=== PATIENT | female | born 1955 | race Caucasian/White ===

== ENCOUNTER → 2016-03-15 | Outpatient (CLI) | payer BC ==
[~2016-03-15] MED LIST: ESCI1TAB10 PO
[2016-03-15 11:24] LABS: INFLUENZA A PCR Neg for Influ A (NEG); INFLUENZA B PCR Neg for Influ B (NEG)
== END | disposition home or self-care (01) ==
LOC: C.LAB1850 08:35
PROVIDERS: ATTEND Family Medicine
DX: J98.8 Other specified respiratory disorders (principal)

== ENCOUNTER → 2016-03-27 | Outpatient (CLI) | payer BC | END | disposition home or self-care (01) | LOC: C.LAB1850 16:29 | PROVIDERS: ATTEND Nurse Practitioner Family | DX: R32 Unspecified urinary incontinence (principal); R31.29 Other microscopic hematuria ==

== ENCOUNTER → 2016-04-17 | Outpatient (CLI) | payer BC ==
[2016-04-17 14:28] LABS: BASO % 0.6 %; BASO ABS # 0.03 K/uL (0-0.2); COMPLETE YES; EOS % 4.7 %; HEMATOCRIT 39.6 % (37-47); IG% 0.2 %; LYMPH % 37.4 %; LYMPH ABS # 1.92 K/uL (1.2-3.4); MEAN CORPUSCULAR HEMOGLOBIN 30.1 pg (25-34); MEAN CORPUSCULAR HGB CONC 33.8 g/dl (32-36); MEAN PLATELET VOLUME 10.9 fL (7.4-10.4); MONO % 6.2 %; NEUT % 50.9 %; PLATELET COUNT 262 K/uL (130-400); RED BLOOD COUNT 4.45 M/uL (4.2-5.4); WHITE BLOOD COUNT 5.14 K/uL (4.8-10.8)
[2016-04-17 14:39] LABS: ALT/SGPT 29 U/L (12-78); BLOOD UREA NITROGEN 25 mg/dl (7-18); BUN/CREATININE RATIO 39.4 (10-20); CALCIUM 8.9 mg/dl (8.5-10.1); CARBON DIOXIDE 26 mmol/L (21-32); CHLORIDE 107 mmol/L (98-107); CHOLESTEROL 176 mg/dl (0-200); CREATININE 0.63 mg/dl (0.60-1.20); GLUCOSE 99 mg/dl (70-99); POTASSIUM 3.9 mmol/L (3.5-5.1); SODIUM 142 mmol/L (136-145); TRIGLYCERIDES 96 mg/dl (0-150); VERY LOW DENSITY LIPOPROT CALC 19 mg/dl
[2016-04-17 14:42] LABS: ALKALINE PHOSPHATASE 78 U/L (45-117); AST/SGOT 15 U/L (15-37); CHOLESTEROL/HDL RATIO 3.7; HDL CHOLESTEROL 47 mg/dl; LDL CHOLESTEROL CALCULATED 110 mg/dl
[2016-04-17 14:54] LABS: ESTIMATED AVERAGE GLUCOSE 114 mg/dl; HA1C FLAG Normal (Normal)
== END | disposition home or self-care (01) ==
LOC: C.LABBC 09:52
PROVIDERS: ATTEND Family Medicine
DX: Z11.59 Encounter for screening for other viral diseases (principal); M06.9 Rheumatoid arthritis, unspecified; E78.5 Hyperlipidemia, unspecified; R73.01 Impaired fasting glucose

== ENCOUNTER → 2016-05-31 | Outpatient (CLI) | payer BC ==
--- NOTE | 2016-05-31 10:40 | DIAGNOSTIC IMAGING REPORT ---
LEFT KNEE 3 VIEWS CLINICAL HISTORY: Rheumatoid arthritis. FINDINGS: AP, lateral, and sunrise views of the left knee are obtained. No prior studies are available for comparison at the time of dictation. The skeletal structures appear osteopenic. No fracture is seen. There is mild to moderate narrowing at the patellofemoral articulation. The medial and lateral compartments appear preserved. There are small marginal osteophytes and patellar enthesophytes. No bony erosion is identified. There is no significant joint effusion. The overlying soft tissues are within normal limits. IMPRESSION: Osteopenia and mild arthritic change as above. No acute bony abnormality is identified. Electronically signed by: Mario Huerta M.D. 05/31/2016 10:38 AM Dictated Date/Time: 05/31/2016 10:36 AM
--- NOTE | 2016-05-31 10:48 | DIAGNOSTIC IMAGING REPORT ---
LEFT HAND MIN 3 VIEWS ROUTINE CLINICAL HISTORY: Osteoarthritis, rheumatoid arthritis. COMPARISON: None. DISCUSSION: No fractures are visualized. There is mild periarticular osteopenia. There are no erosive or destructive changes. There is a small particular calcification at the level of the interphalangeal joint of the thumb. There are mild osteoarthritic type changes most pronounced the level the first carpometacarpal joint. IMPRESSION: 1. Mild osteopenia 2. No acute fractures 3. No evidence of erosive disease Electronically signed by: Emil Schneider M.D. 05/31/2016 10:45 AM Dictated Date/Time: 05/31/2016 10:44 AM
--- NOTE | 2016-05-31 10:49 | DIAGNOSTIC IMAGING REPORT ---
RIGHT KNEE 3 VIEWS CLINICAL HISTORY: Right knee pain. Osteoarthritis. Rheumatoid arthritis. COMPARISON: None. DISCUSSION: No fractures are visualized. There are minor osteoarthritic type changes. There is minor narrowing of the medial joint compartment. There is a tiny dorsal patellar spur. There is no erosive disease. IMPRESSION: 1. No acute fractures 2. Minor degenerative change 3. No evidence of erosive disease Electronically signed by: Emil Schneider M.D. 05/31/2016 10:46 AM Dictated Date/Time: 05/31/2016 10:46 AM
--- NOTE | 2016-05-31 10:52 | DIAGNOSTIC IMAGING REPORT ---
RIGHT HAND 3 VIEWS CLINICAL HISTORY: Rheumatoid arthritis. FINDINGS: 3 views of the right hand are compared to study dated 02/20/2012. The skeletal structures appear osteopenic. No fracture is seen. Jyry-[id number] osteoarthritic change is present at the first carpometacarpal joint with bony sclerosis and mild subluxation. Mild osteoarthritic change is also seen involving the interphalangeal joints, distal greater than proximal. This is greatest in the first and second digits. No erosive arthropathy is identified. The overlying soft tissues are within normal limits. IMPRESSION: Osteopenia and osteoarthritic change as above. No acute bony abnormality is seen. Electronically signed by: Mario Huerta M.D. 05/31/2016 10:49 AM Dictated Date/Time: 05/31/2016 10:47 AM
[2016-05-31 12:18] LABS: BASO % 0.2 %; BASO ABS # 0.01 K/uL (0-0.2); COMPLETE YES; EOS % 4.3 %; HEMATOCRIT 42.2 % (37-47); LYMPH % 41.6 %; LYMPH ABS # 2.05 K/uL (1.2-3.4); MEAN CELL VOLUME 90.6 fL (80-100); MEAN CORPUSCULAR HEMOGLOBIN 30.3 pg (25-34); MEAN CORPUSCULAR HGB CONC 33.4 g/dl (32-36); MEAN PLATELET VOLUME 10.6 fL (7.4-10.4); MONO % 9.5 %; NEUT % 44.4 %; PLATELET COUNT 284 K/uL (130-400); RED BLOOD COUNT 4.66 M/uL (4.2-5.4); WHITE BLOOD COUNT 4.93 K/uL (4.8-10.8)
[2016-05-31 12:29] LABS: CREATININE 0.67 mg/dl (0.60-1.20)
[2016-05-31 12:38] LABS: ALKALINE PHOSPHATASE 79 U/L (45-117); ALT/SGPT 30 U/L (12-78); AST/SGOT 14 U/L (15-37); TOTAL IRON BINDING CAPACITY 361 mcg/dl (250-450)
[2016-06-12 13:10] LABS: ANTI-CENTROMERE AB <1.0 NEG AI (<1.0 NEG); ANTI-SS-A <1.0 NEG AI (<1.0 NEG); ANTI-SS-B <1.0 NEG AI (<1.0 NEG); DNA ds CRITHIDIA NEGATIVE (NEGATIVE); Sm Antibody <1.0 NEG AI (<1.0 NEG)
[2016-06-12 13:41] LABS: ANA TITER 1:40 TITER (<1:40)
== END | disposition home or self-care (01) ==
LOC: C.RAD1850 10:07
PROVIDERS: ATTEND Internal Medicine Rheumatology
DX: M06.9 Rheumatoid arthritis, unspecified (principal); M15.9 Polyosteoarthritis, unspecified; Z79.1 Long term (current) use of non-steroidal anti-inflammatories (NSAID); Z79.899 Other long term (current) drug therapy

== ENCOUNTER → 2016-08-30 | Outpatient (CLI) | payer BC ==
[2016-08-30 12:17] LABS: BASO % 0.5 %; BASO ABS # 0.03 K/uL (0-0.2); COMPLETE YES; EOS % 5.1 %; IG% 0.2 %; LYMPH % 41.3 %; LYMPH ABS # 2.28 K/uL (1.2-3.4); MEAN CELL VOLUME 90.1 fL (80-100); MEAN CORPUSCULAR HEMOGLOBIN 30.3 pg (25-34); MEAN CORPUSCULAR HGB CONC 33.7 g/dl (32-36); MEAN PLATELET VOLUME 10.6 fL (7.4-10.4); MONO % 7.4 %; NEUT % 45.5 %; PLATELET COUNT 241 K/uL (130-400); RED BLOOD COUNT 4.55 M/uL (4.2-5.4); WHITE BLOOD COUNT 5.52 K/uL (4.8-10.8)
[2016-08-30 12:34] LABS: ALT/SGPT 28 U/L (12-78); AST/SGOT 13 U/L (15-37); CREATININE 0.66 mg/dl (0.60-1.20)
== END | disposition home or self-care (01) ==
LOC: C.LAB1850 09:50
PROVIDERS: ATTEND Internal Medicine Rheumatology
DX: M06.9 Rheumatoid arthritis, unspecified (principal); Z79.899 Other long term (current) drug therapy; Z79.1 Long term (current) use of non-steroidal anti-inflammatories (NSAID)

== ENCOUNTER → 2016-09-01 | Outpatient (CLI) | payer BC | END | disposition home or self-care (01) | LOC: C.LABBC 09:38 | PROVIDERS: ATTEND Nurse Practitioner Family | DX: R82.90 Unspecified abnormal findings in urine (principal); R30.0 Dysuria; R39.15 Urgency of urination ==

== ENCOUNTER → 2016-09-18 | Outpatient (CLI) | payer BC ==
--- NOTE | 2016-09-19 14:36 | MAMMOGRAPHY REPORT ---
BILATERAL DIGITAL SCREENING MAMMOGRAM TOMOSYNTHESIS WITH CAD: 09/18/2016 CLINICAL HISTORY: Routine screening examination. TECHNIQUE: Breast tomosynthesis in addition to standard 2D mammography was performed. Current study was also evaluated with a Computer Aided Detection (CAD) system. COMPARISON: Comparison is made to exams dated: 09/09/2015 mammogram, 09/09/2015 ultrasound, 09/07/2015 ninoska mogram, 09/01/2014 mammogram, 06/18/2013 mammogram, and 06/12/2012 mammogram - [facility] er. BREAST COMPOSITION: There are scattered areas of fibroglandular density in both breasts. FINDINGS: A 3.6 x 1.3 cm focal asymmetry in the right upper outer quadrant appears stable dating back to at least 05/28/2008, therefore likely benign. No suspicious mass, architectural distortion or cl uster of suspicious microcalcifications is seen. IMPRESSION: ACR BI-RADS CATEGORY 1: NEGATIVE There is no mammographic evidence of malignancy. A 1 year screening mammogram is recommended. The pa tient will receive written notification of the results. Approximately 10% of breast cancers are not detected with mammography. A negative mammographic report should not delay biopsy if a clinically suggestive mass is present. Rosenda Davis M.D. ay/:09/18/2016 16:02:35 Manager User Interface: Karen JAMES)(M), [facility] letter sent: Normal 1/2 BI-RADS Code: ACR BI-RADS Category 1: Negative
== END | disposition home or self-care (01) ==
LOC: C.MAMM 08:56
PROVIDERS: ATTEND Obstetrics & Gynecology
DX: Z12.31 Encounter for screening mammogram for malignant neoplasm of breast (principal)

== ENCOUNTER → 2016-10-17 | Outpatient (CLI) | payer BC ==
--- NOTE | 2016-10-17 11:35 | DIAGNOSTIC IMAGING REPORT ---
LEFT LOWER EXTREMITY WITHOUT CLINICAL HISTORY: 61 years-old Female presenting with chronic left foot pain. TECHNIQUE: Multidetector CT of the left lower extremity (left foot) was performed without the use of intravenous contrast. IV contrast: None. A dose lowering technique was used consistent with the principles of ALARA (as low as reasonably achievable). COMPARISON: Correlation made to plain radiographs of the left foot from 09/25/2016. CT DOSE (mGy.cm): The estimated cumulative dose is 220.92 mGy.cm. FINDINGS: Filter Press Pumper topogram: Internal fixation hardware noted. Two screw fixation through the first tarsometatarsal articulation and plate and screw fixation of the proximal phalanx of the first toe. Incomplete osseous fusion of the first tarsometatarsal joint. No hardware complication is apparent. Degenerative changes of the first metatarsophalangeal joint with joint space loss, subchondral cystic change, and osteophytosis as well as deformity of the head of the first metatarsal. Ankle mortise intact. No acute fracture or malalignment. No osseous erosions apparent. Soft tissues demonstrate mild infiltration and swelling along the dorsum of the midfoot superficial to the fixation hardware. Allowing for noncontrast technique, no focal fluid collection. Mild diffuse muscle atrophy. IMPRESSION: 1. Internal fixation of the first tarsometatarsal articulation with incomplete osseous fusion across the joint. Overlying soft tissue swelling along the dorsum of the midfoot; likely reactive, although cellulitis not excluded. Correlate clinically. 2. Significant degenerative change of the first metatarsophalangeal articulation. 3. Internal fixation of the proximal phalanx of the first toe. No hardware complication. Electronically signed by: Kalpesh Owen M.D. 10/17/2016 11:33 AM Dictated Date/Time: 10/17/2016 11:27 AM
== END | disposition home or self-care (01) ==
LOC: C.CTS 10:56
PROVIDERS: ATTEND Physician Assistant
DX: M79.672 Pain in left foot (principal); Z98.890 Other specified postprocedural states

== ENCOUNTER → 2017-03-20 | Outpatient (CLI) | payer OTHER ==
--- NOTE | 2017-03-20 10:33 | DIAGNOSTIC IMAGING REPORT ---
KUB HISTORY: Urinary tract infection. COMPARISON: Abdomen and pelvis CT 03/02/2014. FINDINGS: The bowel gas pattern is unremarkable. There are no dilated loops of small bowel to suggest an obstruction. No renal calculi. No ureteral calculi. No pneumoperitoneum or pneumatosis. IMPRESSION: No renal or ureteral stones. Electronically signed by: Bo Padilla M.D. 03/20/2017 10:31 AM Dictated Date/Time: 03/20/2017 10:31 AM
[2017-03-20 13:45] LABS: BASO % 0.7 %; BASO ABS # 0.03 K/uL (0-0.2); EOS % 6.9 %; HEMATOCRIT 41.5 % (37-47); HEMOGLOBIN 14.1 g/dL (12.0-16.0); IG# 0.01 K/uL (0.00-0.02); LYMPH % 35.9 %; LYMPH ABS # 1.57 K/uL (1.2-3.4); MEAN CELL VOLUME 88.3 fL (80-100); MEAN PLATELET VOLUME 10.7 fL (7.4-10.4); MONO % 9.8 %; MONO ABS # 0.43 K/uL (0.11-0.59); NEUT % 46.5 %; NEUT ABS # 2.03 K/uL (1.4-6.5); PLATELET COUNT 257 K/uL (130-400); RED CELL DISTRIBUTION WIDTH CV 12.7 % (11.5-14.5); RED CELL DISTRIBUTION WIDTH SD 40.7 fL (36.4-46.3); WHITE BLOOD COUNT 4.37 K/uL (4.8-10.8)
[2017-03-20 14:12] LABS: ALBUMIN 3.5 gm/dl (3.4-5.0); ALT/SGPT 26 U/L (12-78); AST/SGOT 12 U/L (15-37); TOTAL PROTEIN 7.4 gm/dl (6.4-8.2)
[2017-03-20 14:13] LABS: ALKALINE PHOSPHATASE 81 U/L (45-117)
== END | disposition home or self-care (01) ==
LOC: C.LABBC 09:10
PROVIDERS: ATTEND Internal Medicine Rheumatology
DX: N39.0 Urinary tract infection, site not specified (principal); R32 Unspecified urinary incontinence; R39.15 Urgency of urination; M06.9 Rheumatoid arthritis, unspecified; Z79.1 Long term (current) use of non-steroidal anti-inflammatories (NSAID); M25.522 Pain in left elbow; Z79.899 Other long term (current) drug therapy

== ENCOUNTER → 2017-04-23 | Outpatient (CLI) | payer OTHER ==
--- NOTE | 2017-04-23 12:33 | DIAGNOSTIC IMAGING REPORT ---
KUB CLINICAL HISTORY: N20.0 [id number] nephrocalcinosis COMPARISON STUDY: 03/20/2017 FINDINGS: Kidneys are again noted completely obscured by overlying bowel content. No calcifications within the urinary tracts are identified within these limitations. IMPRESSION: No evidence for nephrolithiasis within limitations of overlying bowel content. No change from the prior exam. The above report was generated using voice recognition software. It may contain grammatical, syntax or spelling errors. Electronically signed by: J Luis Carl M.D. 04/23/2017 12:31 PM Dictated Date/Time: 04/23/2017 12:31 PM
== END | disposition home or self-care (01) ==
LOC: C.RAD1850 12:09
PROVIDERS: ATTEND Urology
DX: N20.0 Calculus of kidney (principal)

== ENCOUNTER → 2017-06-14 | Outpatient (CLI) | payer OTHER ==
--- NOTE | 2017-06-14 16:33 | DIAGNOSTIC IMAGING REPORT ---
BRAIN WITHOUT CONTRAST CLINICAL HISTORY: 62 years-old Female presenting with R51 Headache, vertigo for 5 to 6 weeks. TECHNIQUE: Multisequence, multiplanar MR imaging of the brain was performed without the use of intravenous contrast. IV contrast: None. COMPARISON: Contrast-enhanced brain MR from 06/04/2013. FINDINGS: Cerebellar tonsillar ectopia again noted with the cerebellar tonsils 4 mm below the foramen magnum. Ventricles and sulci normal in size. Cavum septi pellucidi noted. Brain parenchyma normal in appearance with preserved huston-white differentiation. No mass effect or midline shift. No restricted diffusion to suggest acute ischemia. No hemorrhage. No extra-axial fluid collection. T2 skull base flow voids preserved. Prominent soft tissue in the nasopharyngeal region may relate to prominent adenoidal lymphoid tissue. Bone marrow signal intensity within the calvarium within normal limits. IMPRESSION: 1. No acute intracranial abnormality. 2. Prominent soft tissue in the nasopharyngeal region may relate to prominent adenoidal lymphoid tissue. Electronically signed by: Kalpesh Owen M.D. 06/14/2017 4:32 PM Dictated Date/Time: 06/14/2017 4:27 PM
== END | disposition home or self-care (01) ==
LOC: C.MRI 15:40
PROVIDERS: ATTEND Internal Medicine
DX: R51 Headache (principal); M79.9 Soft tissue disorder, unspecified

== ENCOUNTER → 2017-09-06 | Outpatient (CLI) | payer OTHER ==
--- NOTE | 2017-09-06 15:20 | DIAGNOSTIC IMAGING REPORT ---
CHEST 2 VIEWS ROUTINE CLINICAL HISTORY: R05 [id number] COMPARISON STUDY: 05/01/2014 FINDINGS: The cardiac and mediastinal contours are normal. There is no evidence of focal pulmonary consolidation. There is no evidence of failure. No pleural effusions are visualized.[ IMPRESSION: No active disease in the chest. Electronically signed by: Emil Schneider M.D. 09/06/2017 3:19 PM Dictated Date/Time: 09/06/2017 3:19 PM
== END | disposition home or self-care (01) ==
LOC: C.RAD1850 15:01
PROVIDERS: ATTEND Internal Medicine
DX: R05 Cough (principal)

== ENCOUNTER → 2017-09-21 | Outpatient (CLI) | payer BC, OTHER ==
--- NOTE | 2017-09-25 06:59 | MAMMOGRAPHY REPORT ---
BILATERAL DIGITAL SCREENING MAMMOGRAM TOMOSYNTHESIS WITH CAD: 09/21/2017 CLINICAL HISTORY: Routine screening. TECHNIQUE: The study was acquired using full field digital technology and interpreted from soft copy. Breast tomosynthesis in addition to standard 2D mammography was performed. Current study was also ev aluated with a Computer Aided Detection (CAD) system. COMPARISON: Comparison is made to exams dated: 09/09/2015 mammogram, 09/07/2015 mammogram, 09/01/2014 ninoska mogram, 06/18/2013 mammogram, 06/12/2012 mammogram, and 09/18/2016 mammogram - [facility] er. BREAST COMPOSITION: There are scattered areas of fibroglandular density in both breasts. FINDINGS: There is a 7 mm asymmetry seen within the left lateral breast middle depth on the cc view only, which may represent normal overlapping fibroglandular tissue although spot compression tomosynthesis views and possible breast ultrasound are recommended for further evaluation. The remainder of both breasts are stable compared to prior exams, without suspicious masses, calcific ations, or areas of architectural distortion noted. Lobulated asymmetry within the right upper outer quadrant is stable compared to multiple prior exams. IMPRESSION: ACR BI-RADS CATEGORY 0: INCOMPLETE EVALUATION: NEED ADDITIONAL IMAGING EVALUATION Left breast asymmetry, for which additional imaging evaluation is recommended. The patient will be c alled to schedule an appointment. Some breast cancers are not detected with mammography. A negative mammographic report should not yenifer y biopsy if a clinically suggestive mass is present. Zee Hall M.D. /:09/21/2017 16:23:05 Podiatric Foot And Ankle Specialist: RT Lisa(R)(M), [facility] letter sent: Addl Imaging 0 BI-RADS Code: ACR BI-RADS Category 0: Incomplete Evaluation: Need Additional Imaging Evaluation
== END | disposition home or self-care (01) ==
LOC: C.MAMM 08:35
PROVIDERS: ATTEND Obstetrics & Gynecology
DX: Z12.31 Encounter for screening mammogram for malignant neoplasm of breast (principal); N64.89 Other specified disorders of breast